=== PATIENT | male | born 1955 | race Caucasian/White ===

== ENCOUNTER 2017-12-18 18:29 | Emergency (ER) | payer OTHER ==
[~2017-12-18] VITALS: Ht 177.8 cm; Wt 81.6 kg
[2017-12-18 18:41] VITALS: BP 146/76
[2017-12-18 20:01] LABS: HEMATOCRIT 48.2 % (42.0-52.0); HEMOGLOBIN 16.5 G/DL (14.2-18.0); MEAN CORPUSCULAR VOLUME 86 FL (80-99); PLATELET COUNT 195 K/UL (150-450); RED BLOOD COUNT 5.64 M/UL (4.70-6.10); RED CELL DISTRIBUTION WIDTH 13.1 % (11.6-14.8); WHITE BLOOD COUNT 5.2 K/UL (4.8-10.8)
[2017-12-18 20:06] LABS: ANION GAP 14 mmol/L (5-15); BLOOD UREA NITROGEN 8 mg/dL (7-18); CALCIUM 7.9 MG/DL (8.5-10.1); CARBON DIOXIDE 30 MMOL/L (21-32); CHLORIDE 103 MMOL/L (98-107); CREATININE 0.7 MG/DL (0.55-1.30); POTASSIUM 3.4 MMOL/L (3.5-5.1); SODIUM 147 MMOL/L (136-145)
[2017-12-18 20:20] LABS: ALANINE AMINOTRANSFERASE 31 U/L (12-78); ALBUMIN 3.8 G/DL (3.4-5.0); ALBUMIN/GLOBULIN RATIO 1.2 (1.0-2.7); ALKALINE PHOSPHATASE 59 U/L (46-116); ASPARTATE AMINO TRANSFERASE 36 U/L (15-37); BILIRUBIN,TOTAL 0.2 MG/DL (0.2-1.0)
--- NOTE | 2017-12-18 21:35 | Emergency Room Report ---
History of Present Illness General Chief Complaint: Alcohol Intoxication Source: EMS Present Illness HPI 62-year-old male presents ED for evaluation. Patient brought in by EMS. Found laying in front of his house today. Bystander called 911. Intoxicated. Possibly took some pills. Presents in c-collar. Denies any pain. Denies any chest pain or shortness of breath. Denies any nausea or vomiting. Other aggravating relieving factors. No other associated symptoms Allergies: Coded Allergies: No Known Allergies (Unverified , 12/18/17) Patient History Past Medical History: none Past Surgical History: none Pertinent Family History: none Social History: Denies: smoking, alcohol use, drug use Immunizations: UTD Reviewed Nursing Documentation: PMH: Agreed; PSxH: Agreed Nursing Documentation-PMH Past Medical History Deferred: Pt Cognitively Impaired Past Medical History: Deferred Review of Systems All Other Systems: negative except mentioned in HPI Physical Exam Vital Signs Date Time Temp Pulse Resp B/P (MAP) Pulse Ox O2 Delivery O2 Flow Rate FiO2 12/18/17 18:31 97.4 80 18 146/76 99 Room Air 97.3 Sp02 EP Interpretation: reviewed, normal General Appearance: no apparent distress, GCS 15, non-toxic, other - intoxicated Head: normocephalic, atraumatic Eyes: bilateral eye normal inspection, bilateral eye PERRL ENT: hearing grossly normal, normal pharynx, no angioedema, normal voice Neck: full range of motion, supple/symm/no masses, other - in Ccollar Respiratory: chest non-tender, lungs clear, normal breath sounds, speaking full sentences Cardiovascular #1: regular rate, rhythm, no edema Cardiovascular #2: 2+ carotid (R), 2+ carotid (L), 2+ radial (R), 2+ radial (L) , 2+ dorsalis pedis (R), 2+ dorsalis pedis (L) Gastrointestinal: normal bowel sounds, non tender, soft, non-distended, no guarding, no rebound Rectal: deferred Genitourinary: normal inspection, no CVA tenderness Musculoskeletal: back normal, gait/station normal, normal range of motion, non- tender Neurologic: other - intoxicated Psychiatric: other - intoxicated Reflexes: 3+ bicep (R), 3+ bicep (L), 3+ tricep (R), 3+ tricep (L), 3+ knee (R) , 3+ knee (L) Skin: normal color, no rash, warm/dry, well hydrated Lymphatic: no adenopathy Medical Decision Making Diagnostic Impression: Primary Impression: Acute alcoholic intoxication Qualified Codes: F10.929 - Alcohol use, unspecified with intoxication, unspecified ER Course Hospital Course 62-year-old M presents to ED with altered mental status. found down in front of his hosue Differential diagnoses include: Psychosis, EtOH, drug abuse Clinical course patient placed on stretcher. In c-collar. Patient cleared from backboard. After initial history and physical ordered labs, IV fluids, CT brain, CT Cpsine Labs reviewed-electrolytes okay, no leukocytosis, hemoglobin/hematocrit stable, ETOH > 500 CT brain, CT Cspine shows no acute pathology Patient allowed to sleep. C-collar cleared. Patient is now awake alert oriented x3, ambulating i. I feel this is a highly complex case requiring extensive working including EKG/Rhythm strip, Xray/CT/US, Blood/urine lab work, repeat exams while in ED, and administration of strong opiates/narcotics for pain control, admission to hospital or close patient follow up. Diagnosis -alcohol intoxication Stable and discharged to home. Followup with PMD. Return to ED if symptoms recur or worsen Labs Test 12/18/17 19:25 White Blood Count 5.2 K/UL (4.8-10.8) Red Blood Count 5.64 M/UL (4.70-6.10) Hemoglobin 16.5 G/DL (14.2-18.0) Hematocrit 48.2 % (42.0-52.0) Mean Corpuscular Volume 86 FL (80-99) Mean Corpuscular Hemoglobin 29.2 PG (27.0-31.0) Mean Corpuscular Hemoglobin Concent 34.2 G/DL (32.0-36.0) Red Cell Distribution Width 13.1 % (11.6-14.8) Platelet Count 195 K/UL (150-450) Mean Platelet Volume 6.8 FL (6.5-10.1) Neutrophils (%) (Auto) % (45.0-75.0) Lymphocytes (%) (Auto) % (20.0-45.0) Monocytes (%) (Auto) % (1.0-10.0) Eosinophils (%) (Auto) % (0.0-3.0) Basophils (%) (Auto) % (0.0-2.0) Differential Total Cells Counted 100 Neutrophils % (Manual) 28 % (45-75) Lymphocytes % (Manual) 61 % (20-45) Monocytes % (Manual) 7 % (1-10) Eosinophils % (Manual) 3 % (0-3) Basophils % (Manual) 1 % (0-2) Band Neutrophils 0 % (0-8) Platelet Estimate Adequate Platelet Morphology Normal Red Blood Cell Morphology Normal Sodium Level 147 MMOL/L (136-145) Potassium Level 3.4 MMOL/L (3.5-5.1) Chloride Level 103 MMOL/L (98-107) Carbon Dioxide Level 30 MMOL/L (21-32) Anion Gap 14 mmol/L (5-15) Blood Urea Nitrogen 8 mg/dL (7-18) Creatinine 0.7 MG/DL (0.55-1.30) Estimat Glomerular Filtration Rate > 60 mL/min (>60) Glucose Level 96 MG/DL (74-106) Calcium Level 7.9 MG/DL (8.5-10.1) Total Bilirubin 0.2 MG/DL (0.2-1.0) Aspartate Amino Transf (AST/SGOT) 36 U/L (15-37) Alanine Aminotransferase (ALT/SGPT) 31 U/L (12-78) Alkaline Phosphatase 59 U/L (46-116) Total Protein 6.9 G/DL (6.4-8.2) Albumin 3.8 G/DL (3.4-5.0) Globulin 3.1 g/dL Albumin/Globulin Ratio 1.2 (1.0-2.7) Salicylates Level 1.2 ug/mL (2.8-20) Acetaminophen Level < 2 MCG/ML (10-30) Serum Alcohol 505 mg/dL CT/MRI/US Diagnostic Results CT/MRI/US Diagnostic Results #1: Imaging Test Ordered: CT Head Impression no acute process CT/MRI/US Diagnostic Results #2: Imaging Test Ordered: CT C spine Impression no acute process Last Vital Signs Date Time Temp Pulse Resp B/P (MAP) Pulse Ox O2 Delivery O2 Flow Rate FiO2 12/18/17 18:41 97.3 18 146/76 99 Room Air 97.3 12/18/17 18:31 80 Status: improved Disposition: HOME, SELF-CARE Condition: Stable Referrals: [facility] (PCP) Juan Jose Pacheco MD Dec 18, 2017 21:35
[2017-12-18 22:00] VITALS: BP 121/85
[2017-12-18 22:35] VITALS: BP 121/85
--- NOTE | 2017-12-19 11:38 | Diagnostic Imaging Report ---
Indication: Altered mental status Technique: Continuous helical CT scanning of the head was performed utilizing automated exposure control without intravenous contrast material. Axial and coronal reconstructions were obtained. Comparison: None CT dose: Total DLP 1687.07 mGycm; CTDI vol 70.38,9.18 mGy Findings: There is no acute intracranial hemorrhage, mass effect or cortical edema. The ventricles, cisterns and sulci are normal for age. Minimal periventricular hypoattenuation is seen, a nonspecific finding. The posterior fossa and fourth ventricle are unremarkable. Sellar and suprasellar regions are grossly unremarkable. Sinuses are clear. Mild mucosal thickening noted within the maxillary sinuses and some ethmoid air cells. No focal lesions of the bony calvarium or soft tissues of the scalp are seen. IMPRESSION: No evidence of acute intracranial hemorrhage, mass effect or cortical edema. MRI may be obtained for more sensitive evaluation as clinically indicated. Mild paranasal sinus disease. This corresponds with the [facility] preliminary report. The CT scanner at [facility] is accredited by the [employer] and the scans are performed using protocols designed to limit radiation exposure to as low as reasonably achievable to attain images of sufficient resolution adequate for diagnostic evaluation.
--- NOTE | 2017-12-19 11:43 | Diagnostic Imaging Report ---
Indication: Pain status post fall Technique: CT cervical spine was performed utilizing automated exposure control without intravenous contrast material. Axial, sagittal and coronal images were generated. CT dose: Total DLP 1687.07 mGycm; CTDI vol 70.38,9.18 mGy Comparison: None Findings: No evidence of acute fracture. No evidence to suggest spondylolisthesis. There is mild straightening of the cervical lordosis. There is mild discogenic degenerative change of the cervical spine, most pronounced at C4-C5 and C5-C6. There is no significant bony central canal narrowing or bony foraminal narrowing. Please note that the cord and nerves are better assessed on MRI, which can be obtained as clinically indicated for further evaluation. There is no prevertebral soft tissue abnormalities/collection. Thyroid and visualized lung apices grossly unremarkable. Some atherosclerotic vascular calcifications are noted. Mucosal thickening is noted within the partially visualized mastoid sinuses. IMPRESSION: No evidence of acute fracture or traumatic malalignment. Mild degenerative change of the cervical spine. This corresponds with the [facility] preliminary report. The CT scanner at [facility] is accredited by the [employer] and the scans are performed using protocols designed to limit radiation exposure to as low as reasonably achievable to attain images of sufficient resolution adequate for diagnostic evaluation.
== END 2017-12-18 22:35 | disposition home or self-care (01) ==
LOC: EDBD 18:29 → EMR 18:35
DX: F10.129 Alcohol abuse with intoxication, unspecified (principal); R41.82 Altered mental status, unspecified; M54.2 Cervicalgia
CPT/HCPCS: 36415; 70450; 72125; 80053; 80329; 85007; 85025; 96374; 99284

== ENCOUNTER 2018-04-13 17:50 | Emergency (ER) | payer OTHER ==
[~2018-04-13] VITALS: Ht 175.3 cm; Wt 68.0 kg
[2018-04-13] MEDS ORDERED: Sodium Chloride 500ML 500 ML IV ONE (17:57)
--- NOTE | 2018-04-13 18:15 | Emergency Room Report ---
History of Present Illness General Chief Complaint: Altered Level of Consciousness Source: Patient Present Illness HPI Patient is a 62-year-old male who was found by bystanders on the street. He was close to his house and appears to have been walking with his service dog. The patient is altered and cannot give any coherent history just answering "yes " to questions. EMS placed the patient in a c-collar which remains in place at this time. Allergies: Coded Allergies: No Known Allergies (Unverified , 12/18/17) UNABLE TO ASSESS (Unverified , 04/13/18) Patient History Limited by: medical condition Past Medical History: see triage record Past Surgical History: unable to obtain Pertinent Family History: unable to obtain Social History: Reports: alcohol use Nursing Documentation-[facility] Past Medical History Deferred: Pt Cognitively Impaired Past Medical History: Deferred Review of Systems All Other Systems: limited - Unable to obtain secondary to altered mentation Physical Exam Vital Signs Date Time Temp Pulse Resp B/P (MAP) Pulse Ox O2 Delivery O2 Flow Rate FiO2 04/13/18 17:45 97.3 74 18 112/74 94 Nasal Cannula 6.0 97.3 Sp02 EP Interpretation: reviewed, normal General Appearance: alert, mild distress Head: normocephalic, atraumatic Eyes: bilateral eye normal inspection, bilateral eye PERRL ENT: hearing grossly normal, normal pharynx, no angioedema, normal voice Neck: other - C collar in place with midline trachea no evidence of JVD Respiratory: chest non-tender, lungs clear, normal breath sounds, speaking full sentences Cardiovascular #1: regular rate, rhythm, no edema Cardiovascular #2: 2+ carotid (R), 2+ carotid (L), 2+ radial (R), 2+ radial (L) , 2+ dorsalis pedis (R), 2+ dorsalis pedis (L) Gastrointestinal: normal bowel sounds, non tender, soft, non-distended, no guarding, no rebound Rectal: deferred Genitourinary: normal inspection, no CVA tenderness Musculoskeletal: back normal, gait/station normal, normal range of motion, non- tender, calf tenderness Neurologic: alert, oriented x3, responsive, motor strength/tone normal, sensory intact, speech normal Psychiatric: judgement/insight normal, memory normal, mood/affect normal, no suicidal/homicidal ideation Reflexes: 3+ bicep (R), 3+ bicep (L), 3+ tricep (R), 3+ tricep (L), 3+ knee (R) , 3+ knee (L) Skin: normal color, no rash, warm/dry, well hydrated, abrasions - Left knee Lymphatic: no adenopathy Medical Decision Making Diagnostic Impression: Primary Impression: Acute alcohol intoxication ER Course Patient is a 62-year-old male who presents altered from acute alcohol intoxication. Patient's alcohol level was over 400.CT scan of the head and neck , chest x-ray, laboratory studies are all unremarkable save for the alcohol. He has been given IV fluids and monitored in the department. He is now awake alert oriented 3 ambulatory without difficulty and wanting to go home. He has money to call a cab. And he is doing so at this time. Laboratory Tests Test 04/13/18 18:10 04/13/18 18:29 Urine Color Pale yellow Urine Appearance Clear Urine pH 5 (4.5-8.0) Urine Specific [place] 1.015 (1.005-1.035) Urine Protein 1+ (NEGATIVE) H Urine Glucose (UA) Negative (NEGATIVE) Urine Ketones Negative (NEGATIVE) Urine Occult Blood 2+ (NEGATIVE) H Urine Nitrite Negative (NEGATIVE) Urine Bilirubin Negative (NEGATIVE) Urine Urobilinogen Normal MG/DL (0.0-1.0) Urine Leukocyte Esterase Negative (NEGATIVE) Urine RBC 5-10 /HPF (0 - 0) H Urine WBC 2-4 /HPF (0 - 0) Urine Squamous Epithelial Cells None /LPF (NONE/OCC) Urine Bacteria Few /HPF (NONE) Urine Opiates Screen Negative (NEGATIVE) Urine Barbiturates Screen Negative (NEGATIVE) Phencyclidine (PCP) Screen Negative (NEGATIVE) Urine Amphetamines Screen Negative (NEGATIVE) Urine Benzodiazepines Screen Negative (NEGATIVE) Urine Cocaine Screen Negative (NEGATIVE) Urine Marijuana (THC) Screen Negative (NEGATIVE) White Blood Count 5.5 K/UL (4.8-10.8) Red Blood Count 5.10 M/UL (4.70-6.10) Hemoglobin 14.6 G/DL (14.2-18.0) Hematocrit 44.4 % (42.0-52.0) Mean Corpuscular Volume 87 FL (80-99) Mean Corpuscular Hemoglobin 28.6 PG (27.0-31.0) Mean Corpuscular Hemoglobin Concent 32.9 G/DL (32.0-36.0) Red Cell Distribution Width 12.6 % (11.6-14.8) Platelet Count 216 K/UL (150-450) Mean Platelet Volume 5.7 FL (6.5-10.1) L Neutrophils (%) (Auto) 47.4 % (45.0-75.0) Lymphocytes (%) (Auto) 38.2 % (20.0-45.0) Monocytes (%) (Auto) 10.5 % (1.0-10.0) H Eosinophils (%) (Auto) 0.9 % (0.0-3.0) Basophils (%) (Auto) 3.0 % (0.0-2.0) H Sodium Level 146 MMOL/L (136-145) H Potassium Level 2.8 MMOL/L (3.5-5.1) L Chloride Level 104 MMOL/L (98-107) Carbon Dioxide Level 31 MMOL/L (21-32) Anion Gap 11 mmol/L (5-15) Blood Urea Nitrogen 6 mg/dL (7-18) L Creatinine 1.0 MG/DL (0.55-1.30) Estimate Glomerular Filtration Rate > 60 mL/min (>60) Glucose Level 110 MG/DL (74-106) H Calcium Level 7.8 MG/DL (8.5-10.1) L Total Bilirubin 0.2 MG/DL (0.2-1.0) Aspartate Amino Transferase (AST) 49 U/L (15-37) H Alanine Aminotransferase (ALT) 52 U/L (12-78) Alkaline Phosphatase 59 U/L (46-116) Total Creatine Kinase 526 U/L (26-308) H Creatine Kinase MB 11.2 NG/ML (0.0-3.6) H Creatine Kinase MB Relative Index 2.1 Troponin I 0.013 ng/mL (0.000-0.056) Total Protein 6.2 G/DL (6.4-8.2) L Albumin 3.0 G/DL (3.4-5.0) L Globulin 3.2 g/dL Albumin/Globulin Ratio 0.9 (1.0-2.7) L Salicylates Level 0.6 ug/mL (2.8-20) L Acetaminophen Level < 2 MCG/ML (10-30) L Serum Alcohol 468 mg/dL EKG Diagnostic Results EP Interpretation: EKG at 1822-normal sinus rhythm, rate 68, normal axis, no acute ST or T-wav Last Vital Signs Date Time Temp Pulse Resp B/P (MAP) Pulse Ox O2 Delivery O2 Flow Rate FiO2 04/13/18 17:45 97.3 74 18 112/74 94 Nasal Cannula 6.0 97.3 Status: improved Disposition: HOME, SELF-CARE Condition: Improved Scripts Unable to Obtain Active Prescriptions or Reported Meds Referrals: [facility] (PCP) Patient Instructions: Alcohol Intoxication, [id number] Andrés Llamas MD Apr 13, 2018 18:15
[2018-04-13 18:31] VITALS: BP 117/67
[2018-04-13 18:54] LABS: ANION GAP 11 mmol/L (5-15); BLOOD UREA NITROGEN 6 mg/dL (7-18); CALCIUM 7.8 MG/DL (8.5-10.1); CARBON DIOXIDE 31 MMOL/L (21-32); CHLORIDE 104 MMOL/L (98-107); POTASSIUM 2.8 MMOL/L (3.5-5.1); SODIUM 146 MMOL/L (136-145)
[2018-04-13 18:59] LABS: EOSINOPHILS % (AUTO) 0.9 % (0.0-3.0); HEMATOCRIT 44.4 % (42.0-52.0); HEMOGLOBIN 14.6 G/DL (14.2-18.0); LYMPHOCYTES % (AUTO) 38.2 % (20.0-45.0); MEAN CORPUSCULAR VOLUME 87 FL (80-99); MONOCYTES % (AUTO) 10.5 % (1.0-10.0); NEUTROPHILS % (AUTO) 47.4 % (45.0-75.0); PLATELET COUNT 216 K/UL (150-450); RED CELL DISTRIBUTION WIDTH 12.6 % (11.6-14.8); WHITE BLOOD COUNT 5.5 K/UL (4.8-10.8)
[2018-04-13 19:07] LABS: ALANINE AMINOTRANSFERASE 52 U/L (12-78); ALBUMIN/GLOBULIN RATIO 0.9 (1.0-2.7); ALKALINE PHOSPHATASE 59 U/L (46-116); ASPARTATE AMINO TRANSFERASE 49 U/L (15-37); BILIRUBIN,TOTAL 0.2 MG/DL (0.2-1.0); CKMB 11.2 NG/ML (0.0-3.6); CREATINE KINASE 526 U/L (26-308)
[2018-04-13 19:08] LABS: APPEARANCE,URINE CLEAR; BILIRUBIN, URINE NEGATIVE (NEGATIVE); COLOR,URINE PALE YELLOW; GLUCOSE, URINE (UA) NEGATIVE (NEGATIVE); KETONES,URINE NEGATIVE (NEGATIVE); LEUKOCYTE ESTERASE ,URINE NEGATIVE (NEGATIVE); NITRITE,URINE NEGATIVE (NEGATIVE); PH,URINE 5 (4.5-8.0); PROTEIN,URINE 1+ (NEGATIVE); UROBILINOGEN,URINE NORMAL MG/DL (0.0-1.0)
[2018-04-13 20:35] VITALS: BP 127/62
--- NOTE | 2018-04-14 09:18 | Diagnostic Imaging Report ---
Indication: Trauma, pain, status post fall Technique: Spiral acquisitions obtained through the cervical spine. No IV contrast utilized. Multiplanar reconstructions were generated. Total dose length product 1595.81 mGycm. CTDIvol(s) 70.38,7.88 mGy. Dose reduction achieved using automated exposure control. Comparison: 12/18/2017 Findings: There is a nasal airway protector in place. No acute fractures. No dislocations. Bony alignment is normal. No prevertebral soft tissue swelling. The vertebral body heights and disc spaces are preserved. At C5-6, there is mild to moderate bilateral neural foraminal stenosis due to uncinate and facet hypertrophy. At the remaining levels, no significant disc bulge or protrusion, spinal stenosis, or neural foraminal narrowing. Included extra spinal soft tissues are unremarkable. Compared to prior study, no significant interim change other than the presence of the airway protector Impression: No acute bony trauma Nasal airway protector in place Mild degenerative changes as described The CT scanner at [facility] is accredited by the [employer] and the scans are performed using protocols designed to limit radiation exposure to as low as reasonably achievable to attain images of sufficient resolution adequate for diagnostic evaluation.
--- NOTE | 2018-04-14 09:19 | Diagnostic Imaging Report ---
Indications: Altered level of consciousness Technique: Spiral acquisitions obtained through the brain. Angled axial and coronal 5 x 5 mm slices were reconstructed. Total dose length product 1595.81 mGycm. CTDI vol(s) 70.38,7.88 mGy. Dose reduction achieved using automated exposure control Comparison: 12/18/2017 Findings: Again demonstrated is mild age-related enlargement of the ventricles and extra axial CSF spaces. No acute intrarenal hemorrhage or edema, mass effect, nor midline shift. Normal nicole-white differentiation. There is minimal ethmoid sinus disease. Previously demonstrated maxillary sinus mucosal disease has improved The calvarium is intact. Impression: Age-related changes. Negative for acute intracranial bleed or mass effect Sinus disease, decreased from previous exam of 12/18/2017 This agrees with the preliminary interpretation provided overnight by [facility] teleradiology service. The CT scanner at [facility] is accredited by the [employer] and the scans are performed using protocols designed to limit radiation exposure to as low as reasonably achievable to attain images of sufficient resolution adequate for diagnostic evaluation.
--- NOTE | 2018-04-14 11:28 | Diagnostic Imaging Report ---
Indication: Dyspnea Technique: One view of the chest Comparison: none Findings: Heart is enlarged. The lungs and pleural spaces are clear. Impression: Cardiomegaly No acute process This agrees with the preliminary interpretation provided by the emergency room physician
--- NOTE | 2018-04-15 15:44 | Cardiology Report ---
APPROVED REPORT EKG Measurement Heart [id number] ID [id number] Normal sinus rhythm Cannot rule out Anterior infarct, age undetermined Abnormal ECG
== END 2018-04-13 20:45 | disposition home or self-care (01) ==
LOC: EDBD 17:50 → EMR 18:05
DX: F10.129 Alcohol abuse with intoxication, unspecified (principal); Y90.8 Blood alcohol level of 240 mg/100 ml or more; S80.212A Abrasion, left knee, initial encounter; X58.XXXA Exposure to other specified factors, initial encounter; Y92.9 Unspecified place or not applicable; M48.02 Spinal stenosis, cervical region
CPT/HCPCS: 36415; 70450; 71045; 72125; 80053; 80307; 80329; 81003; 82550; 82553; 84484; 85025; 93005; 96361; 96365; 96366; 99284; J3480; J7040

== ENCOUNTER 2018-06-01 21:18 | Emergency (ER) | payer OTHER ==
[~2018-06-01] VITALS: Ht 185.4 cm; Wt 81.6 kg
[2018-06-01 21:27] VITALS: BP 119/75
[2018-06-01 22:00] VITALS: BP 111/66
--- NOTE | 2018-06-01 22:02 | Emergency Room Report ---
History of Present Illness General Chief Complaint: Alcohol Intoxication Source: Medical Record, EMS Present Illness HPI This is a 62-year-old male with a history of alcohol abuse and alcoholism. He presents with chief complaint of altered mental status. He was found laying face down on the grass. Is no trauma. Someone called 911. Patient has a known history of seizure and also history of alcoholism. He has no trauma. Brought in by EMS. History is limited in this patient but previous ER visit showed very high alcohol level. Allergies: Coded Allergies: No Known Allergies (Unverified , 12/18/17) UNABLE TO ASSESS (Unverified , 04/13/18) Patient History Past Medical History: see triage record, old chart reviewed, seizures Past Surgical History: other Pertinent Family History: none Social History: Reports: alcohol use Immunizations: other Reviewed Nursing Documentation: PMH: Agreed; PSxH: Agreed Nursing Documentation-PMH Hx Seizures: Yes Review of Systems All Other Systems: limited - secondary to intoxication Physical Exam Vital Signs Date Time Temp Pulse Resp B/P (MAP) Pulse Ox O2 Delivery O2 Flow Rate FiO2 06/01/18 21:22 98.1 57 20 119/75 100 Room Air 98.1 vitals normal Sp02 EP Interpretation: reviewed, normal General Appearance: well appearing, no apparent distress, other - sleepy Head: normocephalic, atraumatic Eyes: bilateral eye PERRL, bilateral eye EOMI ENT: hearing grossly normal, normal pharynx, other - no oral trauma Neck: full range of motion, supple, no meningismus Respiratory: chest non-tender, lungs clear, normal breath sounds Cardiovascular #1: regular rate, rhythm, no murmur Gastrointestinal: normal bowel sounds, non tender, no mass, no organomegaly, no bruit, non-distended Genitourinary: other - no incontinence of urine Musculoskeletal: back normal, normal range of motion Neurologic: grossly normal Psychiatric: mood/affect normal Skin: warm/dry Medical Decision Making Diagnostic Impression: Primary Impression: Acute alcoholic intoxication Qualified Codes: F10.929 - Alcohol use, unspecified with intoxication, unspecified ER Course Patient with alcohol intoxication. There was no trauma. They no head trauma to indicate CT scan or x-ray. There is no oral trauma or incontinence of his urine to indicate that he had a seizure. Patient woke up when I try to remove him from the backboard. He is intoxicated but able to use profanity toward me. We'll observe until clinical sobriety. Patient slept for several hours. He woke up without any difficulty. Walked to the bathroom without any problem. We'll discharge home. Last Vital Signs Date Time Temp Pulse Resp B/P (MAP) Pulse Ox O2 Delivery O2 Flow Rate FiO2 06/01/18 21:27 98.1 68 20 119/75 100 Room Air 98.1 Status: improved Disposition: HOME, SELF-CARE Condition: Stable Scripts Unable to Obtain Active Prescriptions or Reported Meds Patient Instructions: Alcohol Intoxication, [id number] Additional Instructions: Follow-up with your doctor in 7 days. Go to Rehabilitation. Stop drinking to excess. Return if worse. PRASHANT RAMIREZ M.D. Jun 01, 2018 22:02
[2018-06-02 00:50] VITALS: BP 116/79
== END 2018-06-02 00:50 | disposition home or self-care (01) ==
LOC: EDBD 21:18 → EMR 21:29
DX: F10.929 Alcohol use, unspecified with intoxication, unspecified (principal)
CPT/HCPCS: 99283